=== PATIENT | female | born 1995 | race Caucasian/White ===

== ENCOUNTER 2018-06-20 08:33 | Emergency (ER) | payer OTHER, MEDICAID ==
[~2018-06-20] VITALS: Ht 172.7 cm; Wt 61.2 kg
[~2018-06-20 08:33] MED LIST: ZOFRAN ODT4 MG SUBLING
[2018-06-20 11:04] VITALS: BP 118/82
== END 2018-06-20 11:05 | disposition home or self-care (01) ==
LOC: M.ERS 08:33
DX: S40.012A Contusion of left shoulder, initial encounter (principal); S80.12XA Contusion of left lower leg, initial encounter; R07.89 Other chest pain; V49.49XA Driver injured in collision with other motor vehicles in traffic accident, initial encounter; Y93.89 Activity, other specified; Y92.89 Other specified places as the place of occurrence of the external cause; Y99.8 Other external cause status